=== PATIENT | male | born 1990 | race Caucasian/White ===

== ENCOUNTER 2017-08-24 21:54 | Emergency (ER) | payer OTHER, BC ==
[~2017-08-24] VITALS: Ht 175.3 cm; Wt 82.9 kg
[~2017-08-24 21:54] MED LIST: FLEXERIL10 MG PO; NAPROXEN500 MG PO; PREDNISONE20 MG PO
[2017-08-25 00:12] VITALS: BP 148/85
== END 2017-08-25 00:13 | disposition home or self-care (01) ==
LOC: EME 21:54
DX: S56.912A Strain of unspecified muscles, fascia and tendons at forearm level, left arm, initial encounter (principal); S40.022A Contusion of left upper arm, initial encounter; S40.812A Abrasion of left upper arm, initial encounter; W10.9XXA Fall (on) (from) unspecified stairs and steps, initial encounter; Y92.148 Other place in prison as the place of occurrence of the external cause; Y99.0 Civilian activity done for income or pay
CPT/HCPCS: 73080; 73090; 99281; 99283